=== PATIENT | female | born 1985 | race Caucasian/White ===

== ENCOUNTER → 2018-12-27 | Outpatient (CLI) | payer BC | LOC: LABNPT 14:55 | PROVIDERS: ATTEND Obstetrics & Gynecology | DX: Z32.01 Encounter for pregnancy test, result positive (principal) | CPT/HCPCS: 84702 ==

== ENCOUNTER → 2018-12-27 | Outpatient (CLI) | payer BC ==
--- NOTE | 2018-12-27 17:06 | Diagnostic Imaging Report ---
INDICATION: with presence of an intrauterine contraceptive device. TECHNIQUE: Multiple real-time grayscale images were obtained of the gravid uterus, transabdominally and endovaginally. CORRELATION STUDY: None FINDINGS: There is presence of a viable intrauterine . There is a variable presentation. There appears to be normal amount of amniotic fluid. Placenta appears to be posterior without definitive evidence for previa. Biometrical measurements are as follows: Biparietal diameter 2.3 cm, age 13 weeks 6 days. Head circumference 8.54 cm, age 13 weeks 6 days. Abdominal circumference 6.91 cm, age 13 weeks 4 days. Femur length 1.13 cm, age 13 weeks 3 days. Sonographic estimated age: 13 weeks 5 days. Sonographic estimated date of delivery: 06/29/2019. heart rate: 147 BPM Estimated Weight: 77 g (+/- 11 g) LMP Percentile: 42% There is a linear echogenic focus compatible with an intrauterine contraceptive device. This appears to be noted in the lower uterine segment and cervix region. IMPRESSION: 1. Findings compatible with a viable intrauterine , sonographic estimated age 13 weeks 5 days for sonographic estimated date of delivery June 29, 2019. 2. There is presence of an intrauterine contraceptive device which appears to be in the lower uterine segment/cervix region. Dictated by: Dictated on workstation # [id number]
== END ==
LOC: RAD 15:56
PROVIDERS: ATTEND Nurse Practitioner Women's Health
DX: O99.89 Other specified diseases and conditions complicating pregnancy, childbirth and the puerperium (principal); Z3A.13 13 weeks gestation of pregnancy; Z97.5 Presence of (intrauterine) contraceptive device
CPT/HCPCS: 76801; 76817